=== PATIENT | female | born 2000 | race Two or more races ===

== ENCOUNTER 2024-09-25 08:51 | Outpatient (CLI) | payer MEDICAID, SELFPAY | END 2024-09-25 08:52 | disposition home or self-care (01) | PROVIDERS: PCP Family Medicine; Visit Provider Family Medicine | DX: M79.641 Pain in right hand (principal); M79.642 Pain in left hand | CPT/HCPCS: 86200; 86431 ==

== ENCOUNTER 2024-12-31 17:32 | Outpatient (CLI) | payer MEDICAID, SELFPAY ==
[2024-12-31 20:03] LABS: Chlamydia DNA Amplified* NOT DETECTED (No Detected); GC DNA Amplified* NOT DETECTED (No Detected)
[2025-01-02 14:59] LABS: HPV Source Cervix
[2025-01-09 12:43] LABS: Pap Test Digital Imaging Done; Pap Test Reviewed by Pathologi Done
== END 2024-12-31 17:33 | disposition home or self-care (01) ==
PROVIDERS: PCP Family Medicine; Visit Provider Advanced Practice Midwife
DX: Z12.4 Encounter for screening for malignant neoplasm of cervix (principal); Z13.9 Encounter for screening, unspecified
CPT/HCPCS: 87491; 87591; 87624; 87625; 88141; 88142; 88175